=== PATIENT | female | born 1980 | race Caucasian/White ===

== ENCOUNTER → 2016-10-31 | Outpatient (CLI) | payer BC ==
[~2016-10-31] MED LIST: ALBU6.7H INH
== END | disposition home or self-care (01) ==
LOC: STAR 14:33
PROVIDERS: ATTEND Orthopaedic Surgery
DX: Z02.9 Encounter for administrative examinations, unspecified (principal)

== ENCOUNTER 2016-11-05 08:03 | Day surgery (SDC) | payer BC ==
[~2016-11-05] VITALS: Ht 170.2 cm; Wt 95.2 kg
[~2016-11-05 08:03] MED LIST changes: +EPINEPHRINE 1 MG/ML, 1ML ONE; +LIDOCAINE/PF 1%, 30ML ONE; +ROPIvacaine/PF 0.5%, 30 ML ONE
[2016-11-05] MEDS ORDERED: LACTATED RINGERS 1,000 ML IV SCH ×2 (08:26→08:54)
[2016-11-05 08:55] VITALS: BP 105/70
[2016-11-05] MEDS ORDERED: PROPOFOL 10 MG/ML, 20ML ONE (09:24)
[2016-11-05] MEDS ORDERED: DEXAMETHASONE 4 MG/ML, 1ML ONE (09:24)
[2016-11-05] MEDS ORDERED: CEFAZOLIN 1,000 MG ONE (09:24)
[2016-11-05] MEDS ORDERED: KETOROLAC 30 MG/1 ML ONE (09:24)
[2016-11-05] MEDS ORDERED: METOCLOPRAMIDE 5 MG/ML, 2ML ONE (09:24)
[2016-11-05] MEDS ORDERED: ONDANSETRON 2MG/ML, 2ML ONE ×2 (09:24→10:23)
[2016-11-05] MEDS ORDERED: FENTANYL PF 100 MCG/2ML ONE (09:24)
[2016-11-05] MEDS ORDERED: LABETALOL 5MG/ML 40ML VIAL ONE (09:24)
[2016-11-05] MEDS ORDERED: BUPIVACAINE/PF 0.25% ONE (09:51)
[2016-11-05] MEDS ORDERED: PROMETHAZINE 25 MG/ML, 1ML ONE (10:23)
[2016-11-05] MEDS ORDERED: ACETAMINOPHEN 325 MG TABLET ONE (10:23)
[2016-11-05] MEDS ORDERED: OXYcodone 5 MG/5 ML ORAL.SOL UDC ONE (10:24)
[2016-11-05] MEDS ORDERED: PROMETHAZINE 25 MG/ML, 1ML IV PRN (10:30)
[2016-11-05] MEDS ORDERED: FENTANYL PF 100 MCG/2ML IV PRN (10:30)
[2016-11-05] MEDS ORDERED: ONDANSETRON 2MG/ML, 2ML IVPush PRN (10:30)
[2016-11-05] MEDS ORDERED: MIDAZOLAM 1 MG/ML, 2ML IV PRN (10:30)
[2016-11-05] MEDS ORDERED: hydrALAzine 20 MG/ML, 1ML IV PRN (10:30)
[2016-11-05] MEDS ORDERED: HYDROmorphone 1 MG/ML, 1ML IV PRN (10:30)
[2016-11-05] MEDS ORDERED: ACETAMINOPHEN 325 MG TABLET PO PRN (10:30)
[2016-11-05] MEDS ORDERED: MEPERIDINE/PF 25MG/0.5ML IVPush PRN (10:30)
[2016-11-05] MEDS ORDERED: OXYcodone 5 MG/5 ML ORAL.SOL UDC PO PRN (10:30)
[2016-11-05] MEDS ORDERED: LABETALOL 5MG/ML, 20ML IV PRN (10:30)
== END 2016-11-05 11:55 ==
LOC: OUT 08:03
PROVIDERS: ATTEND Orthopaedic Surgery
DX: S43.431A Superior glenoid labrum lesion of right shoulder, initial encounter (principal); M75.111 Incomplete rotator cuff tear or rupture of right shoulder, not specified as traumatic; M75.41 Impingement syndrome of right shoulder; M19.011 Primary osteoarthritis, right shoulder; X58.XXXA Exposure to other specified factors, initial encounter; Y93.89 Activity, other specified; Y92.89 Other specified places as the place of occurrence of the external cause; Y99.8 Other external cause status; J45.909 Unspecified asthma, uncomplicated; Z88.0 Allergy status to penicillin
CPT/HCPCS: 29823; 29826; J0171; J0690; J1100; J1885; J2405; J2704; J2765; J2795; J3010; J3490; J7120